=== PATIENT | female | born 1980 | race Caucasian/White ===

== ENCOUNTER 2017-12-10 14:57 | Emergency (ER) | payer MEDICAID, OTHER ==
[2017-12-10 15:18] VITALS: BP 128/77
[2017-12-10] MEDS ORDERED: SULFAMETH/TRIMETH DS 800/160 MG TABLET PO STA (16:45)
--- NOTE | 2017-12-10 16:48 | ED Physician Documentation ---
PD HPI SKIN - Stated complaint Stated Complaint: FEMALE - Chief complaint Chief Complaint: General - History obtained from History obtained from: Patient - History of Present Illness Timing - onset: How many days ago (Several) Timing - details: Still present Location: Other (left groin) Similar symptoms before: Diagnosis (Similar infection about one year ago.) - Additional information Additional information: The patient is a 37-year-old female who presents with an infection in her left groin. She first noticed it several days ago, and it became increased in size until this morning when it ruptured and drained. She denies fever, abdominal pain, numbness or weakness. She has a history of similar infection that underwent incision and drainage about one year ago. She was treated with antibiotics for cellulitis at that time as well. She denies history of MRSA. She is not diabetic. Review of Systems Constitutional: denies: Fever Nose: denies: Congestion Respiratory: denies: Dyspnea GI: denies: Abdominal Pain, Nausea, Vomiting : denies: Dysuria Skin: reports: Lesions Musculoskeletal: denies: Extremity pain Neurologic: denies: Focal weakness, Numbness, Headache PD PAST MEDICAL HISTORY - Past Medical History Past Medical History: No Endocrine/Autoimmune: None - Past Surgical History Past Surgical History: Yes Ortho: Arthroscopic surgery - Present Medications Home Medications: Ambulatory Orders Medication Instructions Recorded Confirmed Sulfamethox/Trimeth 800/160 1 each PO BID #14 tablet 12/10/17 [Bactrim Ds 800/160] - Allergies Allergies/Adverse Reactions: Allergies Allergy/AdvReac Type Severity Reaction Status Date / Time Pain AdvReac Rash Uncoded 12/10/17 15:19 - Social History Does the pt smoke?: No Smoking Status: Former smoker Does the pt drink ETOH?: Yes Does the pt have substance abuse?: Yes Substance Use and Type: Marijuana - Immunizations Immunizations are current?: Yes PD ED PE NORMAL - Vitals Vital signs reviewed: Yes (normal) - General General: Alert and oriented X 3, Well developed/nourished - HEENT HEENT: Atraumatic - Cardiac Cardiac: RRR - Respiratory Respiratory: No respiratory distress, Clear bilaterally - Abdomen Abdomen: Soft, Non tender - Derm Derm: Other (There is a 1 x 2 cm erythematous area in the left groin. There was an apparent abscess that has spontaneously ruptured and drained.) - Extremities Extremities: No edema, No calf tenderness / cord - Neuro Neuro: Alert and oriented X 3, Normal speech Results - Vitals Vitals: Oxygen O2 Source Room air PD MEDICAL DECISION MAKING - ED course Complexity details: considered differential, d/w patient ED course: The patient's presentation is most consistent with cellulitis, and abscess that has spontaneously drained. There is no clinical indication for incision and further drainage. A culture swab was obtained and sent to the lab for culture and sensitivity. Treatment in the emergency department included administration of Bactrim DS 1 tablet orally. She is being discharged with prescription for Bactrim. I discussed with her the expected course of illness, antibiotic treatment and outpatient follow-up, as well as potentially worrisome signs or symptoms that should prompt reevaluation in the emergency department. - Sepsis Event Vital Signs: Oxygen O2 Source Room air Departure - Departure Disposition: 01 Home, Self Care Clinical Impression: Abscess of groin, left Condition: Stable Instructions: ED Staph Infec Abx Tx Only Prescriptions: Sulfamethox/Trimeth 800/160 [Bactrim Ds 800/160] 1 each PO BID #14 tablet Comments: Take Bactrim DS twice daily as prescribed. Apply hot soaks to the abscess area intermittently for the next 3 days. Culture results should be available in 2 or 3 days. Follow-up with primary physician within 1-2 weeks. Call to schedule appointment. Return to the emergency department if increasing redness, swelling, pain, or otherwise worsening symptoms. Discharge Date/Time: 12/10/17 16:56
== END 2017-12-10 16:56 | disposition home or self-care (01) ==
LOC: ED 14:57
DX: L02.214 Cutaneous abscess of groin (principal); Z87.891 Personal history of nicotine dependence
CPT/HCPCS: 99283; A9270